=== PATIENT | male | born 1975 | race Caucasian/White ===

== ENCOUNTER → 2023-01-03 12:42 | Outpatient (BNV) | payer OTHER, SELFPAY | PROVIDERS: Visit Provider Psychiatry & Neurology Psychiatry | DX: F41.1 Generalized anxiety disorder (principal); F10.21 Alcohol dependence, in remission; F33.1 Major depressive disorder, recurrent, moderate | CPT/HCPCS: 90792; 99213 ==

== ENCOUNTER 2023-01-22 08:30 | Outpatient (RCR) | payer OTHER, SELFPAY ==
[2023-01-04 11:43] VITALS: BP 138/70; PULSE 76; TEMP 37.3
[2023-01-04 11:47] VITALS: BMI 29.2
--- NOTE | 2023-01-04 12:22 | PC.ADMIT ---
Patient is a 47 year old male who self referred to PHP d/t increased depression with many stresses and ETOH use. Patient reports multiple stresses including marital problems with filing for divorce, father passing away in July (mother passed 4 years ago), charged with an OUI as a result is going to court in February, loss of job patient reports he was asked to resign or would be fired. He is currently living with his aunt. He reports longest period of sobriety from ETOH is 36 days. He is attending AA meetings in person and online. He reports history of going to the hospital ER In July 2022 and was detoxed from ETOH for 3 days. See integrative assessment for more information. Patient is alert and oriented x4. Presented with depressed mood and anxious affect. He is calm and cooperative. Denied SI. Patient given a copy of his safety plan if needed. Medications reconciled with patient and his pharmacy. He reports taking medications as prescribed.
--- NOTE | 2023-01-04 22:11 | P.HPPSP_ITS ---
[facility] Date of Service: 01/04/23 Chief Complaint: anxiety,depression, Sources of Information: patient interviewed and chart reviewed [facility] Narrative: Adalid Joaquin is a 47 yo male with a long history of alcoholism who is being referred to [facility] by his primary care doctor for support around struggles with addiction and mental health issues in the context of recent OUI and marital strife related to ongoing alcohol use. This is his 1st time in [facility], he has history of previously attending IOP this past summer, however the attendance was virtual and he felt this was a limiting factor in his treatment. He was just going through the motions as a dry drunk , however he did not feel he was addressing the underlying MH issues. He continued to spiral out of control for the remainder of the summer, ultimately relapsed with alcohol in October and was subsequently arrested for OUI. Fortunately no one was hurt, however since his license was suspended he has had trouble getting to AA meetings regularly. He was able to amass another 35 days of sobriety but ultimately caved , drinking excessively a few weeks ago. As a result, his , who had reportedly been very supportive around his legal issues and the fall-out from the OUI, has finally had it and served him divorce papers that same week. He has been staying at his aunt's house for the past 2 weeks while his is sorting out things. He is hoping they will be able to reconcile at some point, but also has a great deal of anxiety that she has made clear that she can no longer endure his relapses. The stress of their current separation is causing him to feel more depressed and says he is just trying to focus on what he needs to do otherwise he could fall into despair. He says he knows he needs to take it slow and focus on himself, but says his tendencies toward high anxiety, overthinking and catastrophizing make it very difficult. It is often what contributes to his relapses. Nonetheless he expresses gratitude that he and his are still on talking terms. She remains one of his primary supports. He reports long-standing struggles anxiety, specifically cognitive anxiety, tendency to overthink and worry about everything, also some aspects of social anxiety and somatic anxiety, muscle tension and nervousness aside in addition to the generalized anxiety. Denies having any panic attacks recently. Depressive symptoms are variable and episodes are intermittent, however current depression compounded by ongoing bereavement with the loss of his father in July and recent marital separation. He does not currently have a therapist, in fact has not been in therapy for many years. He is prescribed psychotropic medications by his PCP. He reports taking Lexapro for depression, anxiety for many years. He is good about taking the medication (which he takes in the AM). He is not as good at taking his night meds, which includes naltrexone which he sometimes forgets to take. Currently rates baseline anxiety severity at a 7 out of 10 on most days and up to 10 when stressed. Overall mood stability as a 6 out of 10. (10 being ideal) and mostly relays deficit due to worrying about legal issues and uncertaintly of his marriage surviving as his main concerns at this time. Current medications: Lexapro 20 mg qd (has been on this for years) naltrexone 50 mg qHS (started in ) lisinopril 10 mg qd Past Psychiatric History: No previous IP hospitalizations, PHP or detox admissions Attended IOP x1 in August 2022 at [facility] Hx of outpatient MH treatment Has accessed MH services through his PCP's office Current med provider (PCP) Erin Bueno Tx: none current. Was last in therapy 4 yrs ago (Betty Ahn in [facility]) [facility] Medical History (Updated 01/07/23 @ 08:08 by Lakisha Hinojosa MD) HTN (hypertension) Social History: Lives at home with and daughter although is currently in period of separation from his so has been staying at his aunt's house for the past 2 weeks. 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 Diagnostics Vital Signs (24Hr): Vital Signs - 24 hr 01/04/23 11:43 Temperature 99.2 F Pulse Rate 76 Blood Pressure 138/70 BMI result Body Mass Index 29.2 Meds/Allergies Meds Home Medications Medication Instructions Recorded Confirmed Type escitalopram oxalate 20 mg tablet 20 mg PO DAILY 01/04/23 01/04/23 History lisinopril 10 mg tablet 10 mg PO DAILY 01/04/23 01/04/23 History naltrexone 50 mg tablet 50 mg PO DAILY 01/04/23 01/04/23 History Allergies Allergies Allergy/AdvReac Type Severity Reaction Status Date / Time No Known Allergies Allergy Verified 01/04/23 11:49 Mental Status Exam Mental Status Exam Narrative: Alert, oriented, in no acute distress. Casually dressed. Hygiene, grooming intact. No tics, tremors, no psychomotor agitation or neurovegetative signs. Pleasant, calm, cooperative. Forthcoming. Good eye contact. Mood anxious. Affect variable, constricted range, otherwise congruent, reactive, moments of brightening. No tearfulness or lability. Speech regular, without latency or pressure. No evidence of thought disorder. Thought content without paranoid or delusional content. No SI or HI on inquiry. No perceptual disturbance. Cognition grossly intact. Attention adequate. Impulsivity low. Sensorium clear. Judgment and insight fair but adequate. Assessment & Plan Assessment & Plan (1) Alcohol use disorder, severe, in early remission: Status: Acute Code(s): F10.21 - Alcohol dependence, in remission (2) Major depressive disorder, recurrent episode: Status: Acute Qualifiers: Major depression episode severity: moderate Qualified Code(s): F33.1 - Major depressive disorder, recurrent, moderate Code(s): F33.9 - Major depressive disorder, recurrent, unspecified (3) Generalized anxiety disorder: Status: Acute Code(s): F41.1 - Generalized anxiety disorder Plan Admit to [facility] start buspirone 5 mg BID, will plan to titrate to 10 mg BID over the next 4 days as tolerated continue other medications WIll continue to monitor Patient educated on: diagnosis, medication risk/benefits and substance abuse Informed Consent: understands Reason for continued partial hosp. stay Substantial Risk for: inability to function, rapid decompensation and med/psych decompensation Certification I certify that partial hospital treatment is medically necessary due to the symptoms and problems resulting from the patient's mental illness and the failure to treat the patient at the partial hospital level of care would likely result in the patient requiring inpatient psychiatric care which could not be prevented at a less intensive level of care. Time Spent With Patient Time: Total time managing care of this patient today __60__ minutes.
--- NOTE | 2023-01-08 14:52 | HO.PHP ---
A referral for OP therapy was faxed to [facility] for Adalid. PHP staff member is awaiting for the scheduled date and time.
--- NOTE | 2023-01-09 09:18 | PC.NURSE ---
Met with Adalid this morning and he is interested in a recovery operator helper however has not had time to call. Adalid called [facility] in my office and spoke to Brennan Samson about setting up an intake appointment for a recovery operator helper. Brennan will f/u with Adalid on Saturday about setting up this appointment.
--- NOTE | 2023-01-10 17:43 | HO.PHP ---
The client's case was reviewed and opened in treatment team.
--- NOTE | 2023-01-10 21:40 | HO.PHPPROGNO ---
Subjective Subjective Date of Service: 01/10/23 Reason For Visit: anxiety,depression, Interim History: Patient seen for follow up today. No acute issues or concerns. Reports doing well. He is back at home, he and continue to make progress in their relationship which he finds encouraging. He is finding group therapy very helpful and says his appreciates a difference in his communication and says he seems happier. He reports feeling calmer, trying to take it one step at a time rather than worrying about everything all at once. He reflects on his alcohol dependence, says his dependence is more psychological than physiological. He has not had any withdrawal symptoms, but is noticing patterns of behavior where he has associations with drinking. However he currently denies any urges or cravings to drink. He feel his tendency to bottle things up drove his impulses toward drinking. He is trying to practice mildfulness and being more open with his thoughts and feelings. He has done a lot of AA meetings, but feels he would benefit from regular therapy where he can do more talking, rather than mostly listening as he does in AA. He reports that María is helping him get connected with a therapist at [facility]. He discusses purchasing the monitoring program [employer] (similar to [employer]) which he has given full control of the testing schedule to his . He continues on medications without issues. The naltrexone is at 50 mg which he takes every night and is reportedly helpful with sleep. He said his provider had discussed Antabuse with him but he declined as he is not interested and prefers the monitoring system. He has been toelrating taking Buspar whch is now titrated to 10 mg BID in AM and 5pm. Does not interefer with sleep when taken with supper. Denies any h/h/SI. Medication Compliance: Yes Side effects from medications: No Attending Groups: Yes Review of Systems Acute medical concerns: No Mental Status Exam Mental Status Exam Narrative: Alert, oriented, in no acute distress. Casually dressed. Hygiene, grooming intact. No tics, tremors, no psychomotor agitation or neurovegetative signs. Pleasant, calm, cooperative. Forthcoming. Good eye contact. Mood anxious. Affect variable, constricted range, otherwise congruent, reactive, moments of brightening. No tearfulness or lability. Speech regular, without latency or pressure. No evidence of thought disorder. Thought content without paranoid or delusional content. No SI or HI on inquiry. No perceptual disturbance. Cognition grossly intact. Attention adequate. Impulsivity low. Sensorium clear. Judgment and insight fair but adequate. Diagnostics Vital Signs (24Hr): BMI result Body Mass Index 29.2 Assessment & Plan Assessment & Plan (1) Generalized anxiety disorder: Status: Acute Code(s): F41.1 - Generalized anxiety disorder (2) Alcohol use disorder, severe, in early remission: Status: Acute Code(s): F10.21 - Alcohol dependence, in remission (3) Major depressive disorder, recurrent episode: Qualifiers: Major depression episode severity: moderate Qualified Code(s): F33.1 - Major depressive disorder, recurrent, moderate Status: Acute Code(s): F33.9 - Major depressive disorder, recurrent, unspecified Plan continue in PHP increase buspirone to 15 mg BID continue other medication continue to monitor Patient educated on: diagnosis, medication risk/benefits and substance abuse Informed Consent: understands Reason for contiued partial hosp. stay Substantial Risk for: rapid decompensation and med/psych decompensation Certification I certify that partial hospital treatment is medically necessary due to the symptoms and problems resulting from the patient's mental illness and the failure to treat the patient at the partial hospital level of care would likely result in the patient requiring inpatient psychiatric care which could not be prevented at a less intensive level of care. Total time managing care of this patient today _30___ minutes. Discharge Plan Discharge Attending provider: Lakisha Hinojosa Medications: New buspirone 15 mg tablet 15 mg PO BID Qty: 60 0RF Continued naltrexone 50 mg tablet 50 mg PO DAILY lisinopril 10 mg tablet 10 mg PO DAILY escitalopram oxalate 20 mg tablet 20 mg PO DAILY Stand Alone Forms: Patient Portal Discharge page
--- NOTE | 2023-01-14 13:20 | HO.PHP ---
[facility] staff followed up with [facility] to see if they were able to schedule Adalid's OP therapy appointment. Marisabel, from [facility] noted that she will work on scheduling that and provide that information to the clinician at a later time today. [facility] staff was receptive.
--- NOTE | 2023-01-14 20:46 | P.PNPSP_ITS ---
Subjective Subjective Date of Service: 01/14/23 Reason For Visit: anxiety,depression, Interim History: Patient seen for follow-up today. Discharged planned for later today. Patient denies any acute issues or concerns. I'm doing really well . He reports just feeling calmer. He is trusting the process and trying to stay focused on what he needs to do. He and his has made some concrete steps toward progress in their relationship. He is back in the home now and finds this has provided some reassurance to quiet some of the anxieties and despair he had been experiencing when he first came to the program. He knows his marriage is not out of the clear and that he has a lot of work to do to regain his 's trust, but the efforts he is making and focusing on his recovery helps. He has agreed to submitting daily (sometimes mutiple times a day) breathalizer tests which he put his in charge of monitoring. She is not ready to allow him to care for their child, but this enables him to be in the home without causing her distress over concerns about whether he has relapsed. He denies having any cravings or urges to drink. He notices some passing thoughts, which are more associated with habits (eg watching a sports game and having beer) than are true cravings. As a result he is realizing there is a need to build new routines and habits. He says he is not at a point where he feels he is ready to stay he will never have a drink again. However he does appreciate he is at a point where he needs to live without it for the time being, and not make any assumptions about whether he can or will drink again. He reports his mood is stable. Denies any depressive symptoms, irritability or lability. Denies any SI, intention, urge or plan. No aggressive ideation. No shane or psychosis. Sleep, appetite are intact. ROS negative. No alcohol or substance use. He remains medication compliant. He denies any adverse effects. Medication Compliance: Yes Side effects from medications: No Attending Groups: Yes Review of Systems Acute medical concerns: No Mental Status Exam Mental Status Exam Narrative: Alert, oriented, in no acute distress. Casually dressed. Hygiene, grooming intact. No tics, tremors, no psychomotor agitation or neurovegetative signs. Pleasant, calm, cooperative. Forthcoming. Good eye contact. Mood anxious. Affect variable, constricted range, otherwise congruent, reactive, moments of brightening. No tearfulness or lability. Speech regular, without latency or pressure. No evidence of thought disorder. Thought content without paranoid or delusional content. No SI or HI on inquiry. No perceptual disturbance. Cognition grossly intact. Attention adequate. Impulsivity low. Sensorium clear. Judgment and insight fair but adequate. Diagnostics Vital Signs (24Hr): BMI result Body Mass Index 29.2 Assessment & Plan Assessment & Plan (1) Alcohol use disorder, severe, in early remission: Status: Acute Code(s): F10.21 - Alcohol dependence, in remission (2) Generalized anxiety disorder: Status: Acute Code(s): F41.1 - Generalized anxiety disorder (3) Major depressive disorder, recurrent episode: Qualifiers: Major depression episode severity: moderate Qualified Code(s): F33.1 - Major depressive disorder, recurrent, moderate Status: Acute Code(s): F33.9 - Major depressive disorder, recurrent, unspecified Plan Discharge from [facility] Continue current medications Will defer further medication management to outpatient provider Patient educated on: diagnosis, medication risk/benefits and substance abuse Informed Consent: understands Reason for contiued partial hosp. stay Substantial Risk for: stable for discharge Certification I certify that partial hospital treatment is medically necessary due to the symptoms and problems resulting from the patient's mental illness and the failure to treat the patient at the partial hospital level of care would likely result in the patient requiring inpatient psychiatric care which could not be prevented at a less intensive level of care. Total time managing care of this patient today _30___ minutes. Discharge Plan Discharge Attending provider: Lakisha Hinojosa Medications: New buspirone 15 mg tablet 15 mg PO BID Qty: 60 0RF Continued naltrexone 50 mg tablet 50 mg PO DAILY lisinopril 10 mg tablet 10 mg PO DAILY escitalopram oxalate 20 mg tablet 20 mg PO DAILY Stand Alone Forms: Patient Portal Discharge page Telehealth Telehealth Location of provider rendering services: other Location of patient: other Patient Identification confirmed using: Name, : Yes Telehealth method: video Patient verbally consented to treatment: Yes Minutes spent on Phone/Video with Pt.: [id number]
--- NOTE | 2023-01-15 15:19 | HO.PHP ---
[facility] staff received a phone call from Marisabel through [facility], with Ravi intake appointment which is scheduled for January 28, 2023 at 10 AM with Flor Melendez at [address] [place] [address] in [place], [place] .
--- NOTE | 2023-01-22 20:16 | P.PNPSP_ITS ---
Subjective Subjective Date of Service: 01/22/23 Reason For Visit: anxiety,depression, Interim History: Patient seen for follow up today. Anticipates discharge at the end of the program today. No acute issues or complaints. Feels great . He feels he has gained a lot from working in the groups, I umburdened myself enough says he has a long habit of internalizing problems, shutting down and then that's where all the trouble starts . He is feeling optimistic about his marriage. He and his wofe continue to make progress, we got issues to work on, but I think we are doing really well . He has been around the house more and is spending time with his 20 month old son. He is still not allowed to be in sole care/resposbility for thei child until his is able to trust him again. He says he understands the process. He has been home cooking, which he enjoys. He denies any SI, just the opposite...I want to live life . He continues on Buspar at 15 mg BID as well as his other regular medications. Still taking the naltrexone consistently now for a month. He denies any adverse effects from medicaitons. Sleep and appetite are intact. Energy is good also. He has an intake on Saturday with [facility] for therapy. He agrees to ask them about getting a psychaitrist, since he has trouble getting a hold of his PCP for refills. Mental Status Exam Mental Status Exam Narrative: Alert, oriented, in no acute distress. Casually dressed. Hygiene, grooming intact. No tics, tremors, no psychomotor agitation or neurovegetative signs. Pleasant, calm, cooperative. Forthcoming. Good eye contact. Mood anxious, better. Affect brighter, intense, mood congruent, reactive. No tearfulness or lability. Speech regular, without latency or pressure. No evidence of thought disorder. Thought content without paranoid or delusional content. No SI or HI on inquiry. No perceptual disturbance. Cognition grossly intact. Attention adequate. Impulsivity low. Sensorium clear. Judgment and insight fair but adequate. Diagnostics Vital Signs (24Hr): BMI result Body Mass Index 29.2 Assessment & Plan Assessment & Plan (1) Alcohol use disorder, severe, in early remission: Status: Acute Code(s): F10.21 - Alcohol dependence, in remission (2) Generalized anxiety disorder: Status: Acute Code(s): F41.1 - Generalized anxiety disorder (3) Major depressive disorder, recurrent episode: Qualifiers: Major depression episode severity: moderate Qualified Code(s): F33.1 - Major depressive disorder, recurrent, moderate Status: Acute Code(s): F33.9 - Major depressive disorder, recurrent, unspecified Plan Discharge from [facility] continue regular medications will defer to psych provider for ongoing medication management Patient educated on: diagnosis, medication risk/benefits and substance abuse Informed Consent: understands Certification I certify that partial hospital treatment is medically necessary due to the symptoms and problems resulting from the patient's mental illness and the failure to treat the patient at the partial hospital level of care would likely result in the patient requiring inpatient psychiatric care which could not be prevented at a less intensive level of care. Total time managing care of this patient today __30__ minutes. Discharge Plan Discharge Attending provider: Lakisha Hinojosa Medications: Continued naltrexone 50 mg tablet 50 mg PO DAILY 14 Days Qty: 14 0RF lisinopril 10 mg tablet 10 mg PO DAILY 14 Days Qty: 14 0RF buspirone 15 mg tablet 15 mg PO BID 14 Days Qty: 28 0RF escitalopram oxalate 20 mg tablet 20 mg PO DAILY 14 Days Qty: 14 0RF Stand Alone Forms: Patient Portal Discharge page Patient Education: Depression (DC), Alcohol Use Disorder (DC)
== END 2023-01-22 23:59 | disposition home or self-care (01) ==
LOC: HO.PHPA 08:30
PROVIDERS: Visit Provider Psychiatry & Neurology Psychiatry
DX: F33.1 Major depressive disorder, recurrent, moderate (principal); F41.1 Generalized anxiety disorder; F10.21 Alcohol dependence, in remission
CPT/HCPCS: 90791; 90853